=== PATIENT | female | born 1970 ===

== ENCOUNTER 2017-12-10 07:37 | Emergency (ER) | payer MEDICAID, OTHER ==
[2017-12-10 07:52] VITALS: BP 118/77; PULSE 99; RESP 16; TEMP 99.1; O2SAT 98; BMI 31.1
--- NOTE | 2017-12-10 08:38 | ED PDOC ---
HPI: CCC, URI, Sore Throat Time Seen by Provider: 12/10/17 07:43 Chief Complaint (Nursing): ENT Problem Chief Complaint (Provider): ENT Problem History Per: Patient History/Exam Limitations: no limitations Onset/Duration Of Symptoms: Days (x4) Current Symptoms Are (Timing): Still Present Location Of Pain: Throat Associated Symptoms: Sore Throat Additional Complaint(s): 47 year old female presents to the ED with complaints of a sore throat associated with fever and painful swallowing, onset 4 days ago. Patient states fever began yesterday with a Tmax of 102 degrees. Denies cough. PMD: mark anthony nava Past Medical History Reviewed: Historical Data, Nursing Documentation, Vital Signs Vital Signs: Last Vital Signs Temp 99.1 F 12/10/17 07:51 Pulse 99 H 12/10/17 07:51 Resp 16 12/10/17 07:51 BP 118/77 12/10/17 07:51 Pulse Ox 98 12/11/17 16:48 - Medical History PMH: HTN - Family History Family History: States: Unknown Family Hx - Social History Current smoker - smoking cessation education provided: No - Home Medications Home Medications: Ambulatory Orders Medication Instructions Recorded Losartan/Hydrochlorothiazide 1 tab PO DAILY 04/19/16 [Losartan-Hctz 50-12.5 mg Tab] Amoxicillin 500 mg PO BID #19 tablet 12/10/17 Naproxen [Naprosyn] 500 mg PO BID PRN #15 tablet 12/10/17 - Allergies Allergies/Adverse Reactions: Allergies Allergy/AdvReac Type Severity Reaction Status Date / Time No Known Allergies Allergy Verified 04/19/16 07:09 Review of Systems ROS Statement: Except As Marked, All Systems Reviewed And Found Negative ENT: Positive for: Throat Pain (sore throat and painful swallowing ) Respiratory: Negative for: Cough Physical Exam - Reviewed Nursing Documentation Reviewed: Yes Vital Signs Reviewed: Yes - Physical Exam Appears: Positive for: No Acute Distress (Speaking full sentences) Head Exam: Positive for: ATRAUMATIC, NORMOCEPHALIC Skin: Positive for: Normal Color, Warm, Dry Eye Exam: Positive for: Normal appearance, EOMI, PERRL ENT: Positive for: Normal ENT Inspection, Pharyngeal Erythema, Tonsillar Exudate (left ), Tonsillar Swelling (Minimal), Other (handling secretion ; no drooling; uvula midline). Negative for: Sinus Pain/Drainage, Nasal Congestion Neck: Positive for: Normal, Supple Cardiovascular/Chest: Positive for: Regular Rate, Rhythm. Negative for: Murmur Respiratory: Positive for: Normal Breath Sounds. Negative for: Respiratory Distress Neurologic/Psych: Positive for: Alert, Oriented. Negative for: Motor/Sensory Deficits - ECG O2 Sat by Pulse Oximetry: 98 (RA) Pulse Ox Interpretation: Normal Medical Decision Making Medical Decision Making: Time: 0848 Impression: Pharyngitis Plan: -- ED Urine -- Amoxil 500 mg PO -- Motrin 600 mg PO Scribe Attestation: Documented by Jorge L Wheatley, acting as a scribe for Dr. Katiana Díaz MD. Provider Scribe Attestation: All medical record entries made by the Scribe were at my direction and personally dictated by me. I have reviewed the chart and agree that the record accurately reflects my personal performance of the history, physical exam, medical decision making, and the department course for this patient. I have also personally directed, reviewed, and agree with the discharge instructions and disposition. Disposition - Clinical Impression Clinical Impression: Pharyngitis - Disposition [facility]errals[facility] [[facility]] Disposition: Routine/Home Disposition Time: 08:48 Condition: STABLE Prescriptions: Amoxicillin 500 mg PO BID #19 tablet Naproxen [Naprosyn] 500 mg PO BID PRN #15 tablet PRN Reason: Pain, Moderate (4-7) Instructions: Bacterial Upper Respiratory Infection, Adult Forms: [employer] Connect (Azeri) Print Language: IRAQI
== END 2017-12-10 09:15 | disposition home or self-care (01) ==
LOC: SUPCPDRO 07:37 → H.ER 07:37
DX: J02.9 Acute pharyngitis, unspecified (principal); I10 Essential (primary) hypertension